=== PATIENT | male | born 1945 | race Caucasian/White ===

== ENCOUNTER 2024-10-01 13:18 | Emergency (ER) | payer OTHER, SELFPAY ==
[2024-10-01 13:20] VITALS: BP 198/95
[2024-10-01 13:53] LABS: Hematocrit 40.3 % (39.0-52.0); Hemoglobin 14.2 g/dL (13.0-18.0); Mean Corp Hgb Conc. 35.2 g/dL (33.0-37.0); Mean Corpuscular Volume 91.8 fL (80.0-94.0); Nucleated Red Blood Cells % 0 % (-); Platelet Count 255 10^3/uL (130-400); Red Cell Dist. Width 12.7 % (11.5-14.5)
[2024-10-01 14:04] LABS: ALT (SGPT) 32 U/L (0-50); AST (SGOT) 24 U/L (17-59); Albumin 4.8 g/dl (3.5-5.0); Alkaline Phosphatase 45 U/L (38-126); Blood Urea Nitrogen 19 mg/dl (9-20); Calcium 8.9 mg/dl (8.4-10.2); Carbon Dioxide 27 mmol/L (22-30); Chloride 103 mmol/L (98-107); Glucose 142 mg/dl (70-99); Potassium 4.0 mmol/L (3.5-5.1); Sodium 137 mmol/L (135-145); Total Protein 7.3 g/dl (6.3-8.2); eGFR > 60.00
[2024-10-01 14:07] LABS: C-Reactive Protein < 5.00 mg/L (0.0-10.00)
--- NOTE | 2024-10-01 16:29 | ED.GENMED ---
History of Present Illness
General
Chief Complaint: Visual Problem
Source: patient
Exam Limitations: none
Time Seen by Provider: 10/01/24 15:50
Nursing documentation reviewed up to this point in time: agreed with
History of Present Illness
History of Present Illness:
Patient to ED for eval of vision changes. States 3 days ago he noticed a arreola line thru his vision. resolved on own. Arreola line reappeared again yesterday and again resolved on own. He was seen by ophthalmology today and sent to ED for concern of
aumaurosis fugax. Pateint is currently symptom free. No associated symptoms.
Past History
Past History
ED Past Medical History: GERD, HTN, Hypercholesterolemia and NIDDM
Phy Exam
General Physical Exam
General Presentation: well appearing
General age: appears stated age
General Skin: warm and dry
General Habitus: normal
General Mental: alert
Eye Exam
Eye Exam: PERRL, EOMI and conjunctiva normal
Cardiovascular Exam
Cardiovascular Exam: regular rate/rhythm and no edema
Neurological Exam
Neurological Exam: alert, oriented x3, CN II-XII intact, no motor deficits and no sensory deficits
Musculoskeletal Exam
Musculoskeletal Exam: full ROM and neuro vasc intact
Skin Exam
Skin Exam: normal color, warm/dry and no rash
Psychiatric Exam
Psychiatric Exam: normal mood/affect
Course
Orders/Labs/Results
Orders:
Orders
10/01/24 13:32
CT Head W/o Iv Contrast Urgent
Comment:
Reason For Exam: right eye visual change
10/01/24 13:39
C-Reactive Protein Urgent
CMP [Comprehensive Metabolic Panel] Urgent
Complete Blood Count/With Diff Urgent
Erythrocyte Sed Rate Urgent
10/01/24 16:25
CT Head & Neck Angio W/wo IV Urgent
Comment:
Reason For Exam: amaurosis fugax
Abnormal Lab Results
10/01/24
13:39
RBC 4.39 L 10^6/uL
(4.70-6.10)
MCH 32.3 H pg
(27.0-31.0)
Glucose 142 H mg/dl
(70-99)
10/01/24 13:39
10/01/24 13:39
Vital Signs
Initial and Last Documented VS:
Initial Vital Signs
Temp Pulse Resp BP Pulse Ox
97.9 F 69 18 198/95 98
10/01/24 13:20 10/01/24 13:20 10/01/24 13:20 10/01/24 13:20 10/01/24 13:20
Last Documented Vital Signs
Temp Pulse Resp BP Pulse Ox
97.9 F 60 17 158/87 99
10/01/24 13:20 10/01/24 20:26 10/01/24 20:26 10/01/24 20:26 10/01/24 20:26
*Radiology
Radiology exam reviewed: radiology read reviewed
*Pulse Oximetry
SaO2: 98
Oxygen Mode of Delivery: Room air
Patient hypoxic: no
*Critical Care Note
Total Time (30-74mins, 75-104mins- exclusive of procedures): Not Applicable
Update Note
Update Note:
Patient to ED at request of ophthalmology for complaint of arreola line through vision. Symptom first noted 3 days ago and then yesdterday. Resolved on own. No associated symtpoms. He was evaluated by [employer] administrator, comprehensive exam unchanged
from prior, no fidings to explain his symptolms. He was sent to ED for CVA/TIA workup. Patient remaine asymptomatic while in ED. No findings on physical exam. CT/CTA neg for acute findings. He is aware of bilateral carotid stenosis and will follow
up with PCP and fence post cutter. ASA 325mg daily prescribed. He is will be discvharged home tonight. Instructed to return to ED immediately if symptoms return and he is agreeable to plan.
ED Attending Note
-
Portions of this chart may have been created with voice recognition software.� Occasional wrong word or��sound alike� substitutions may have occurred due to the inherent limitations of voice recognition software.
Discharge Plan
Departure
Patient Disposition: Home (Routine Discharge)
Date of Disposition: 10/01/24
Time of Disposition: 20:04
Patient with high blood pressure during this ER visit?: No
Condition: Good
Covid-19: Not Applicable
Discharge Problem:
Vision blurring
Instructions: Floaters in the Eye
Prescriptions:
No Action
simvastatin 20 MG tablet
20 mg PO QPM
esomeprazole magnesium [Nexium] 40 MG capsule,delayed release(DR/EC)
40 mg PO DAILY
multivitamin with folic acid [Tab-A-Brandi] 1 TABLET tablet
1 tab PO DAILY
mupirocin 1 APPLIC ointment
1 applic intranasal BID Qty: 1 0RF
Patient Comments:
started Sun 05/05 BID last dose 05/08 0600
oxycodone 5 MG tablet
5 mg PO Q4HPRN PRN (Reason: moderate-severe pain) Qty: 30 0RF
Rx Instructions:
1 tab moderate pain or 2 if pain severe
Dx total joint replacement
ongoing therapy
ondansetron HCl 4 MG tablet
4 mg PO Q6HPRN PRN (Reason: nausea) Qty: 20 0RF
acetaminophen 500 MG tablet
1,000 mg PO QID Qty: 1 0RF
Rx Instructions:
Standing order
Do not exceed >4000 mg daily
docusate sodium 100 MG capsule
100 mg PO BID Qty: 1 0RF
sennosides [senna] 8.6 MG tablet
8.6 mg PO BID Qty: 2 0RF
aspirin 325 MG tablet
325 mg PO DAILY Qty: 1 0RF
Rx Instructions:
Take daily x 4 weeks for blood clot prevention
valsartan 80 MG tablet
80 mg PO DAILY Qty: 0 0RF
Rx Instructions:
Hold if systolic blood pressure <130 while on oxycodone
meloxicam 7.5 MG tablet
7.5 mg PO Daily Qty: 1 0RF
Rx Instructions:
Take with food
Do not take within 2 hours of aspirin
Referrals:
Justin Bagley MD [Family Provider, Internal Medicine]
Activity Restrictions/Additional Instructions:
Please begin Aspirin 325mg daily. Follow up with your private neurologist, call in the AM to schedule your appointment. Return to the emergency department for return of your symptoms, any new symptoms/concerns.
Interventions
Interventions:
*Risk Screen - Suicide Last Done: 10/01/24 13:20
*General Assessment Last Done: 10/01/24 20:26
*Neglect/Abuse Screening Last Done: 10/01/24 13:20
*ED COVID-19 Vaccine History Last Done: 10/01/24 13:20
*Nursing Disposition Last Done: 10/01/24 20:26
ED- Neurological Assessment Last Done: 10/01/24 16:38
ED-EENT Assessment Last Done: 10/01/24 16:38
Discharge Date and Time
Discharge Date/Time: 10/01/24 20:28
Print Language: SOMALI
[2024-10-01 16:36] VITALS: BMI 28.5
[2024-10-01 16:37] VITALS: BP 167/78
[2024-10-01 20:26] VITALS: BP 158/87
== END 2024-10-01 20:28 | disposition home or self-care (01) ==
LOC: EMR 13:18
PROVIDERS: Emergency Medicine; EMERGENCY PHYSICIAN Emergency Medicine; FAMILY PHYSICIAN Internal Medicine
DX: H53.8 Other visual disturbances (principal); K21.9 Gastro-esophageal reflux disease without esophagitis; I10 Essential (primary) hypertension; E78.00 Pure hypercholesterolemia, unspecified; E11.9 Type 2 diabetes mellitus without complications
CPT/HCPCS: 99284; 70450; 70496; 70498; 80053; 85025; 85652; 86140; Q9967

== ENCOUNTER → 2024-12-09 13:47 | Outpatient (REF) | payer OTHER, SELFPAY ==
[2024-12-09 17:32] LABS: Urine Character Clear (Clear)
== END ==
LOC: CLAB 13:47
PROVIDERS: ATTENDING PHYSICIAN Specialist
DX: N39.0 Urinary tract infection, site not specified (principal)
CPT/HCPCS: 81003; 87086